=== PATIENT | male | born 1980 | race Hispanic/Latino ===

== ENCOUNTER → 2025-07-15 | Outpatient (CLI) | payer OTHER ==
--- NOTE | 2025-07-15 19:44 | HMCIMG ---
EXAM: XR Right Wrist, 3 Views.CLINICAL HISTORY: Pain in the right wrist.COMPARISON: None. FINDINGS: BONES: No obvious fracture or focal osseous lesion.JOINTS: No obvious dislocation. The joint spaces are normal.SOFT TISSUES: Soft tissues appear unremarkable. IMPRESSION: * No obvious fracture or dislocation noted. /[place]ands
== END | disposition home or self-care (01) ==
LOC: RAH 11:38
PROVIDERS: ATTEND Family Medicine
DX: M25.531 Pain in right wrist (principal)
CPT/HCPCS: 73110